=== PATIENT | female | born 1985 | race Caucasian/White ===

== ENCOUNTER → 2020-03-14 | Outpatient (CLI) | payer OTHER | END | disposition home or self-care (01) | LOC: LAB SHORT 16:49 → LAB 16:49 | PROVIDERS: Family Medicine | DX: Z01.419 Encounter for gynecological examination (general) (routine) without abnormal findings (principal) | CPT/HCPCS: G0123 ==

== ENCOUNTER → 2021-09-18 | Outpatient (CLI) | payer OTHER | END | disposition home or self-care (01) | LOC: LAB SHORT 13:37 | DX: R22.1 Localized swelling, mass and lump, neck (principal) | CPT/HCPCS: 84439; 84443 ==